=== PATIENT | male | born 1950 | race Caucasian/White ===

== ENCOUNTER → 2018-12-30 07:02 | Day surgery (SDC) | payer MEDICARE ==
--- NOTE | 2018-12-21 14:47 | HP ---
CC: Dr. Shyam Boo * HISTORY AND PHYSICAL: DATE OF PLANNED ADMISSION AND SURGERY: 12/30/18 HISTORY OF PRESENT ILLNESS: Mr. Christina is a 68-year-old white male who is admitted with proximal right ureteral calculi for shockwave lithotripsy and for cystoscopy and insertion of right ureteral stent. Mr. Christina has past history of renal calculus disease. The calculi had been asymptomatic and had been observed. About 3 months ago, he developed right flank pain. Pain was radiating anteriorly. It lasted for 1 to 2 days and resolved spontaneously on no treatment. He has remained asymptomatic. The patient was then evaluated in my office and had a renal ultrasound, which showed mild right hydronephrosis and an 8 mm calculus in the proximal right ureter. There were 2 nonobstructing left renal calculi measuring about 6 mm each. The patient then had a KUB which confirmed the presence of 2 calculi located in the area of the proximal right ureter and measuring about 1.2 cm in total length. With that finding, the patient is admitted for the above procedure. The patient has had periodic PSA's and they have been normal at about 2.2 PAST MEDICAL HISTORY AND SYSTEM REVIEW: The patient is in excellent health. He denies any cardiac or pulmonary diseases or symptoms. He has hyperlipidemia, maintained on simvastatin 80 mg daily. He has no other medical problems. He has a bladder outlet obstruction and he is maintained on tamsulosin 0.4 mg daily. PAST SURGICAL HISTORY: He had an appendectomy and hemorrhoidectomy. ALLERGIES: He denies any allergies to medications. FAMILY HISTORY: Relevant for a younger brother who developed prostate carcinoma at the age of 60. There is longevity in his family and both parents in their 90s. SOCIAL HISTORY: He is a nonsmoker. His mental history and neurological histories are negative. He does not smoke and does not use any recreational drugs. PHYSICAL EXAMINATION GENERAL: Pleasant, healthy, moderately overweight white male who looks good for his age. VITAL SIGNS: Blood pressure 110/70, pulse of 76. LUNGS: Clear. HEART: Regular and rhythmic. No murmurs. ABDOMEN: Soft. No masses. No tenderness and no CVA tenderness. : External genitalia are normal. He has no inguinal hernias. RECTAL: Exam shows a slightly enlarged prostate with right lobe larger than the left. There is however no induration and no suspicious nodules. EXTREMITIES: Show no edema. IMPRESSION: Minimally symptomatic and minimally obstructing proximal left ureteral calculi measuring 1.2 cm. PLAN: Plan is for shockwave lithotripsy of the right ureteral calculi followed by cystoscopy and insertion of right ureteral stent. I discussed the above plans with the patient. Some of the potential complications including hematuria, possible occurrence of renal colic after stent removal and possible need for ureteroscopy if the stone fragments do not pass spontaneously. All his questions were answered. [id number]/[facility] #: [id number] MANUELA
[~2018-12-30 07:02] MED LIST: Acetaminophen TAB* 325 MG PO PRN; Buffered Lidocaine 1% SYRIN* 1 ML/SYRINGE INTRADERM ONE; Dexamethasone IV* 4 MG/ML 1 ML (4 MG) IV SLOW PU ONE; Dexamethasone IV* 4 MG/ML 1 ML (4 MG) ONE; EPHEDrine (Pressors)* 50 MG/ML VIAL ONE; Famotidine IV* 10 MG/ML 2 ML (20 mg) IV ONE; HYDROcodone/ACETAMIN 5-325 MG* 1 TAB PO PRN; HYDROmorphone INJ1* 1 MG/ML SYRINGE IV PRN; Iohexol 180 (CONTRAST) 10 ML SDV IV ONE; Lactated Ringers 1000 ML Bag* 1,000 ML IV SCH; Lidocaine 2% PF * 5 ML VIAL ONE; Midazolam* 1 MG/ML 2 ML VIAL (2 MG) ONE; Naloxone* 0.4 MG/ML 1 ML VIAL IV PRN; Ondansetron INJ* 2 MG/ML VIAL ONE; Propofol* 10 MG/ML 20 ML BTL ONE; cefTRIAXone(*) 2 GM ADDV.VIAL IVPB ONE; fentaNYL* 50 MCG/ML 2 ML VIAL (100 MCG VIAL) ONE
[2018-12-30 12:31] VITALS: BP 125/77
--- NOTE | 2018-12-30 15:15 | OP ---
CC: Dr. Shyam Boo * DATE OF OPERATION: 12/30/18 - [facility] DATE OF : 50 SURGEON: Omar Thapa MD ANESTHESIOLOGIST: Dr. Chaparro. ANESTHESIA: General. PRE-OP DIAGNOSIS: Proximal right ureteral calculi. POST-OP DIAGNOSIS: Proximal right ureteral calculi. OPERATIVE PROCEDURES: 1. Cystoscopy. 2. Right ureteroscopy, laser lithotripsy, extraction of fragments of right ureteral calculi. 3. Right retrograde pyelography and placement of right ureteral stent (7-Mexican ). INDICATION FOR PROCEDURE: Mr. Christina is a 68-year-old white male who, 3 months ago, had an episode of right renal colic. He has done fine since that time. Work-up including a KUB showed two faintly radio-opaque calculi measuring total of 1.5 cm located in the proximal right ureter at the level of the transverse process of L3. There was mild right hydronephrosis. Because of that finding, and the duration of his symptoms, the patient is admitted for treatment of the above calculi. The initial plan was to perform shockwave lithotripsy and insertion of right ureteral stent. OPERATIVE FINDINGS: Preoperative KUB and fluoroscopy on the operating room table failed to show the radiopaque calculi in the proximal right ureter. At cystoscopy, the urethra looked normal, the prostatic urethra was moderately obstructing. The bladder mucosa looked normal. No suspicious bladder lesions seen, no calculi or diverticuli seen. The ureteral orifices looked normal. Upon right ureteroscopy, there were 2 calculi noted at the level of L3. The calculi had the gross appearance of calcium oxalate stone. Right retrograde pyelography showed moderate proximal right hydroureteronephrosis. DESCRIPTION OF PROCEDURE: After successful general anesthesia, the patient was placed in the supine position on the shockwave lithotripsy table. Fluoroscopy was performed and the calculi could not be visualized. The patient was then placed in the lithotomy position and was prepped and draped for a cystoscopy. Cystoscopy was performed and the above findings were noted. A flexible-tip guidewire was then introduced without difficulty and positioned in the area of the collecting system. Fluoroscopy again failed to show radiopaque calculi adjacent to the guidewire. Decision was then made to proceed with right ureteroscopy. The distal ureter was dilated to 8-Mexican using an open-ended catheter. A 6.5 semirigid tapered ureteroscope was then introduced inside the bladder. A flexible-tip basket was introduced through the port of the ureteroscope and its flexible tip was introduced into the right ureter alongside the guidewire. That allowed the atraumatic introduction of the ureteroscope inside the ureter. The ureteroscope was then introduced without difficulty all the way into the proximal ureter where the calculi were identified. The basket was then deployed and the stones were partially engaged to prevent their proximal migration. A size 550 micron laser fiber was then introduced through the other port of the ureteroscope and the stones were broken into multiple fragments using the laser energy. Care was taken during the procedure to avoid any injury to the ureteral wall. After good fragmentation of the stones, the fragments were extracted. The larger ones were sent for stone analysis. Ureteroscopy at the end of the lasering showed intact ureteral wall, no evidence of any ureteral wall perforation, and no significant residual fragments were noted. Retrograde pyelography was then performed placing the open-ended catheter in the distal ureter and demonstrating the site of the ureteroscopy. There was no narrowing of the ureter and no extravasation noted. Moderate hydroureteronephrosis was noted. A size 7-Mexican stent was then placed with the proximal end coiling in the renal pelvis and the distal end coiling inside the bladder. There was good drainage of contrast from the kidney and no extravasation. The patient tolerated the procedure well and left the operating room in good condition. The plan is to leave the stent in place for about 10 days. It will be removed in the office under local anesthesia. [id number]/[facility] #: [id number] MTDD
== END | disposition home or self-care (01) ==
LOC: OR 07:02
PROVIDERS: ATTEND Urology
DX: N13.2 Hydronephrosis with renal and ureteral calculous obstruction (principal); E78.5 Hyperlipidemia, unspecified
CPT/HCPCS: 74018; 82365; 88300; C1876; J0696; J1100; J2250; J2405; J2704; J3010